=== PATIENT | male | born 1950 | race Two or more races ===

== ENCOUNTER → 2025-03-06 | Outpatient (CLI) | payer MEDICARE, BC, SELFPAY ==
--- NOTE | 2025-03-06 11:30 | XR_ITS ---
EXAMINATION: Ultrasound soft tissue neck TECHNIQUE: Grayscale sonographic images soft tissue neck Date and time: March 06, 2025, 1141 hours INDICATIONS: Palpable lump on clinical examination by physician left neck 2 months ago. FINDINGS: Multiple lymph nodes at the area of concern, the largest 13 x 8 x 10 mm IMPRESSION: Recommend CT soft tissue neck follow-up to assess significant left neck lymphadenopathy
== END | disposition home or self-care (01) ==
PROVIDERS: PCP Nurse Practitioner Family; Referring Provider Nurse Practitioner Family; Visit Provider Nurse Practitioner Family
DX: R59.0 Localized enlarged lymph nodes (principal)
CPT/HCPCS: 76536